=== PATIENT | female | born 1985 | race Caucasian/White ===

== ENCOUNTER 2016-08-06 20:59 | Emergency (ER) | payer MEDICAID ==
[~2016-08-06] VITALS: Ht 162.5 cm; Wt 104.3 kg
[~2016-08-06 20:59] MED LIST: ABILIFY2 MG PO; ABILIFY20 MG PO; ALBUTEROL0.09 MG/A2 IH; AMOXICILLIN500 M1 PO; AMOXICILLIN500 M2 PO; AMOXICILLIN500 MG PO; AMOXIL500 MG PO; ANAPROX DS550 MG PO; BACTRIM DS 8001 TA1 PO; BENTYL10 MG PO; BIRTH CONTROL1 EAC1 PO; BUSPAR5 MG PO; CEPHALEXIN500 M1 PO; CIPRO250 MG PO; CIPRO500 MG PO; CIPROFLOXACIN500 MG PO; CLARITIN-D 12 H1 TAB PO; CLARITIN10 MG PO; CLEOCIN150 MG PO; COLACE100 MG PO; CYMBALTA30 MG PO; DICLOFENAC POTA50 MG PO; DIFLUCAN150 MG PO; DOLOBID500 MG PO; DOXYCYCLINE MO100 MG PO; FIORICET 50-301 EACH PO; FLAGYL500 MG PO; FLINTSTONES W/I1 CTB PO; HYDROCODONE BIT1 T11 PO; IBUPROFEN1 CRY PO; IRON FERROUS S325 MG PO; KEFLEX500 MG PO; KLONOPIN0.5 MG PO; LEXAPRO; LEXAPRO10 MG PO; LEXAPRO20 MG PO; LEXAPRO5 MG PO; MACROBID100 M1 PO; MEDROL DOSEPAK4 MG PO; METFORMIN500 MG PO; MINIPRESS1 M1 PO; MOTRIN800 MG PO; Motrin,Rufen800 MG PO; NEURONTIN100 MG PO; NIFEDIPINE10 MG PO; NITROFURANTOIN100 M6 PO; NORCO 325 MG-51 TAB PO; ORTHO TRI-CYCLE1 TA1 PO; Orphenadrine C100 MG PO; PARAFON FORTE500 MG PO; PERCOCET 325 MG1 TA5 PO; PERCOCET 325 MG1 TA7 PO; PHENERGAN25 M1 PO; PREDNICOT10 MG PO; PREDNICOT20 MG PO; PREDNISONE10 MG PO; PREDNISONE20 M1 PO; PRENATAL1 TA4 PO; PRENATAL1 TA7 PO; PRILOSEC40 M1 PO; PROCARDIA10 MG PO; PROVENTIL0.09 MG/A1 INH; PYRIDIUM200 M1 PO; PYRIDIUM200 MG PO; ROBAXIN750 MG PO; ROBINUL FORTE2 MG PO; ROBITUSSIN AC 110 ML PO; ROBITUSSIN DM 105 ML PO; SEROQUEL XR50 MG PO; SEROQUEL50 MG PO; TRAMADOL HCL50 MG PO; TRIMOX500 MG PO; TYLENOL WITH CO1 TAB PO; TYLENOL325 M1 PO; ULTRAM50 MG PO; VALIUM10 MG PO; VALIUM5 MG PO; VIBRAMYCIN100 MG PO; VICODIN 5/500 505 MG PO; VICODIN 500 MG-1 TAB PO; VICODIN ES 7501 TAB PO; VISTARIL25 MG PO; VITAMIN B121000 MC2 SL; VOLTAREN50 M1 PO; VOLTAREN50 MG PO; XANAX0.5 MG PO; ZANTAC 150150 MG PO; ZITHROMAX TRI-500 MG PO; ZITHROMAX250 MG PO; ZOFRAN ODT4 MG SL; ZOFRAN4 MG PO; Zofran4 MG PO; [UNRECOGNIZED DRUG - OTHER]; [UNRECOGNIZED DRUG - OTHER]
[2016-08-06] MEDS ORDERED: ABILIFY20 MG PO (21:16)
[2016-08-06] MEDS ORDERED: LEXAPRO20 MG PO (21:16)
[2016-08-06] MEDS ORDERED: VISTARIL50 MG PO (21:17)
[2016-08-06] MEDS ORDERED: AUGMENTIN 875-875 MG PO (22:37)
== END 2016-08-06 21:56 | disposition home or self-care (01) ==
LOC: ED 20:59
DX: H66.001 Acute suppurative otitis media without spontaneous rupture of ear drum, right ear (principal); F31.9 Bipolar disorder, unspecified; F17.200 Nicotine dependence, unspecified, uncomplicated; Z88.6 Allergy status to analgesic agent; Z79.899 Other long term (current) drug therapy

== ENCOUNTER 2016-10-26 21:25 | Emergency (ER) | payer MEDICAID ==
[~2016-10-26] VITALS: Ht 162.5 cm; Wt 102.5 kg
[~2016-10-26 21:25] MED LIST changes: +AUGMENTIN 875-875 MG PO; +VISTARIL50 MG PO
[2016-10-26 21:49] VITALS: BP 121/82
[2016-10-26] MEDS ORDERED: CYCLOBENZAPRINE10 MG PO (22:24)
== END 2016-10-26 22:29 | disposition home or self-care (01) ==
LOC: ED 21:25
DX: M25.512 Pain in left shoulder (principal); F17.200 Nicotine dependence, unspecified, uncomplicated; Z88.6 Allergy status to analgesic agent; Z79.899 Other long term (current) drug therapy

== ENCOUNTER 2016-11-12 21:52 | Emergency (ER) | payer MEDICAID ==
[~2016-11-12] VITALS: Ht 162.5 cm; Wt 99.8 kg
[~2016-11-12 21:52] MED LIST changes: +CYCLOBENZAPRINE10 MG PO
[2016-11-12 22:02] VITALS: BP 121/73
[2016-11-12 22:47] LABS: BILIRUBIN 1+ (NEGATIVE); BLOOD TRACE-INTACT (NEGATIVE); CLARITY SL CLOUDY (CLEAR); COLOR YELLOW (YELLOW); GLUCOSE NEGATIVE (NEGATIVE); KETONE TRACE (NEGATIVE); LEUKO ESTERASE TRACE (NEGATIVE); NITRITE NEGATIVE (NEGATIVE); PH 6.5 (5.0-9.0); PROTEIN 1+ (NEGATIVE)
[2016-11-12] MEDS ORDERED: COLACE100 MG PO (22:59)
[2016-11-12] MEDS ORDERED: MACROBID100 M1 PO (22:59)
[2016-11-12 23:06] LABS: BACTERIA 1+; MUCOUS 2+; URINE REFLEX COMMENT YES (NO)
== END 2016-11-12 23:29 | disposition home or self-care (01) ==
LOC: ED 21:52
PROVIDERS: Family Medicine
DX: N30.01 Acute cystitis with hematuria (principal); K59.00 Constipation, unspecified; G89.29 Other chronic pain; M54.2 Cervicalgia; F17.200 Nicotine dependence, unspecified, uncomplicated; Z88.6 Allergy status to analgesic agent

== ENCOUNTER 2017-03-28 17:49 | Emergency (ER) | payer MEDICAID ==
[~2017-03-28] VITALS: Ht 162.5 cm; Wt 107.0 kg
[2017-03-28 18:00] VITALS: BP 125/74
[2017-03-28 18:24] LABS: BASO % 0.1 % (0.0-1.0); EOS # 0.2 10*3/uL (0.0-0.4); EOS % 1.5 % (1.0-4.0); HEMATOCRIT 34.9 % (37.0-47.0); HEMOGLOBIN 12.1 g/dl (12.0-16.0); LYMPH # 2.3 10*3/uL (1.3-4.4); LYMPH % 21.6 % (27.0-41.0); MEAN CELL VOLUME 95.4 fl (81.0-99.0); MEAN CORPUSCULAR HGB 33.1 pg (27.0-31.0); MEAN CORPUSCULAR HGB CONC 34.7 g/dl (33.0-37.0); MONO # 0.8 10*3/uL (0.1-1.0); MONO % 7.1 % (3.0-9.0); NEUT # 7.5 10*3/uL (2.3-7.9); NEUT % 69.4 % (47.0-73.0); PLATELET COUNT AUTOMATED 172 10*3/uL (130-400); RED BLOOD COUNT 3.66 10*6/uL (4.10-5.10); RED CELL DISTRI WIDTH 12.3 % (0-14.5); WHITE BLOOD COUNT 10.8 10*3/uL (4.8-10.8)
[2017-03-28 18:36] LABS: BUN 5 mg/dl (7-24); CHLORIDE 106 mmol/L (98-107); POTASSIUM 3.9 mmol/L (3.5-5.1); SODIUM 138 mmol/L (136-145)
[2017-03-28 19:17] LABS: BILIRUBIN NEGATIVE (NEGATIVE); BLOOD NEGATIVE (NEGATIVE); CLARITY CLEAR (CLEAR); COLOR YELLOW (YELLOW); GLUCOSE NEGATIVE (NEGATIVE); KETONE NEGATIVE (NEGATIVE); LEUKO ESTERASE NEGATIVE (NEGATIVE); NITRITE NEGATIVE (NEGATIVE); PH 6.5 (5.0-9.0); UROBILINOGEN 0.2 E.U./dl (0.2-1.0)
[2017-03-28 19:23] LABS: BACTERIA TRACE
[2017-03-28 20:21] LABS: URINE AMPHETAMINES < 1000 (1000ng/ml); URINE BARBITURATES < 200 (200ng/ml); URINE BENZODIAZEPINES < 200 (200ng/ml); URINE CANNABINOIDS (THC) < 50 (50ng/ml); URINE COCAINE < 300 (300ng/ml); URINE METHADONE < 300 (300ng/ml); URINE OPIATES < 300 (300ng/ml); URINE PHENCYCLIDINE < 25 (25ng/ml)
[2017-03-28] MEDS ORDERED: TOPCARE PAIN R325 MG PO (20:30)
== END 2017-03-28 20:35 | disposition home or self-care (01) ==
LOC: ED 17:49
PROVIDERS: Emergency Medicine; Emergency Medicine Emergency Medical Services
DX: O26.892 Other specified pregnancy related conditions, second trimester (principal); R10.2 Pelvic and perineal pain; O99.332 Smoking (tobacco) complicating pregnancy, second trimester; G89.29 Other chronic pain; Z3A.20 20 weeks gestation of pregnancy; Z88.6 Allergy status to analgesic agent

== ENCOUNTER 2017-11-07 18:53 | Emergency (ER) | payer MEDICAID ==
[~2017-11-07] VITALS: Ht 162.5 cm; Wt 107.0 kg
[~2017-11-07 18:53] MED LIST changes: +TOPCARE PAIN R325 MG PO
[2017-11-07 18:58] VITALS: BP 103/72
== END 2017-11-07 20:10 | disposition home or self-care (01) ==
LOC: ED 18:53
DX: S60.00XA Contusion of unspecified finger without damage to nail, initial encounter (principal); Z88.6 Allergy status to analgesic agent; W22.03XA Walked into furniture, initial encounter; Y93.89 Activity, other specified; Y92.89 Other specified places as the place of occurrence of the external cause; Y99.8 Other external cause status

== ENCOUNTER 2018-06-15 14:17 | Emergency (ER) | payer OTHER ==
[~2018-06-15] VITALS: Ht 162.5 cm; Wt 98.4 kg
[2018-06-15 14:17] VITALS: BP 115/66
[~2018-06-15 14:17] MED LIST changes: +PREDNISONE50 MG PO
[2018-06-15 14:37] LABS: BASO % 0.3 % (0.0-1.0); EOS # 0.1 10*3/uL (0.0-0.4); EOS % 0.7 % (1.0-4.0); HEMATOCRIT 37.9 % (37.0-47.0); HEMOGLOBIN 12.9 g/dl (12.0-16.0); LYMPH # 1.9 10*3/uL (1.3-4.4); LYMPH % 27.6 % (27.0-41.0); MEAN CELL VOLUME 94.5 fl (81.0-99.0); MEAN CORPUSCULAR HGB 32.2 pg (27.0-31.0); MEAN PLATELET VOLUME 9.7 fl (9.6-12.3); MONO # 0.9 10*3/uL (0.1-1.0); NEUT % 58.1 % (47.0-73.0); PLATELET COUNT AUTOMATED 215 10*3/uL (130-400); RED BLOOD COUNT 4.01 10*6/uL (4.10-5.10); RED CELL DISTRI WIDTH 11.9 % (0-14.5); WHITE BLOOD COUNT 6.9 10*3/uL (4.8-10.8)
[2018-06-15 14:55] LABS: ALBUMIN 2.9 gm/dl (3.1-4.5); ALKALINE PHOSPHATASE 65 U/L (45-117); BUN 10 mg/dl (7-24); CHLORIDE 107 mmol/L (98-107); CREATININE 0.85 mg/dL (0.55-1.02); POTASSIUM 4.2 mmol/L (3.5-5.1); SGOT/AST 24 IU/L (3-35); SGPT/ALT 42 U/L (12-78); SODIUM 139 mmol/L (136-145); TOTAL PROTEIN 7.1 gm/dL (6.4-8.2)
[2018-06-15 15:03] LABS: BILIRUBIN NEGATIVE (NEGATIVE); BLOOD TRACE-INTACT (NEGATIVE); CLARITY SL CLOUDY (CLEAR); COLOR YELLOW (YELLOW); GLUCOSE NEGATIVE (NEGATIVE); KETONE NEGATIVE (NEGATIVE); LEUKO ESTERASE 2+ (NEGATIVE); NITRITE NEGATIVE (NEGATIVE); SPECIFIC GRAVITY 1.015 (1.005-1.030); UROBILINOGEN 0.2 E.U./dl (0.2-1.0)
[2018-06-15 15:13] LABS: BACTERIA 2+; EPITHELIAL CELLS 25-30; RBC 0-2 rbc/hpf (0-2); WBC 31-40 wbc/hpf (0-5)
[2018-06-15 15:14] LABS: MUCOUS TRACE
[2018-06-15] MEDS ORDERED: LEVOFLOXACIN500 MG PO (16:05)
== END 2018-06-15 16:13 | disposition home or self-care (01) ==
LOC: ED 14:17
PROVIDERS: Emergency Medicine
DX: J40 Bronchitis, not specified as acute or chronic (principal); N39.0 Urinary tract infection, site not specified; K42.9 Umbilical hernia without obstruction or gangrene; G89.29 Other chronic pain; F17.200 Nicotine dependence, unspecified, uncomplicated; Z88.6 Allergy status to analgesic agent; Z79.2 Long term (current) use of antibiotics

== ENCOUNTER 2018-07-26 08:31 | Emergency (ER) | payer OTHER ==
[~2018-07-26] VITALS: Ht 162.5 cm; Wt 98.4 kg
[~2018-07-26 08:31] MED LIST changes: +LEVOFLOXACIN500 MG PO
[2018-07-26 08:35] VITALS: BP 113/74
[2018-07-26] MEDS ORDERED: AVPAK AZITHROM250 MG PO (08:56)
[2018-07-26] MEDS ORDERED: TYLENOL325 M1 PO (08:56)
[2018-08-18] MEDS ORDERED: ABILIFY20 MG PO (10:03)
[2018-08-18] MEDS ORDERED: VENTOLIN 02.5 MG/3 M INH (10:04)
[2018-08-24] MEDS ORDERED: CLINDAMYCIN150 MG PO (10:39)
[2018-08-24] MEDS ORDERED: MEDROL DOSEPAK4 MG PO (10:39)
[2018-08-24] MEDS ORDERED: NORCO 5-325 TA1 EACH PO (10:40)
[2018-11-01] MEDS ORDERED: MEDROL DOSEPAK4 MG PO (19:39)
[2018-11-01] MEDS ORDERED: ROBAXIN500 M1 PO (19:39)
[2018-11-01] MEDS ORDERED: TYLENOL325 M1 PO (19:39)
[2018-11-22] MEDS ORDERED: ZOFRAN4 MG PO (19:34)
[2018-11-22] MEDS ORDERED: MACROBID100 M1 PO (19:34)
== END 2018-07-26 09:02 | disposition home or self-care (01) ==
LOC: ED 08:31
DX: J01.10 Acute frontal sinusitis, unspecified (principal); J01.00 Acute maxillary sinusitis, unspecified; B96.89 Other specified bacterial agents as the cause of diseases classified elsewhere; G89.29 Other chronic pain; F17.210 Nicotine dependence, cigarettes, uncomplicated; Z88.6 Allergy status to analgesic agent; Z79.2 Long term (current) use of antibiotics; Z79.899 Other long term (current) drug therapy

== ENCOUNTER → 2018-08-24 | Day surgery (SDC) | payer OTHER ==
[2018-08-24] VITALS (8 sets, daily range): BP systolic 109–116; BP diastolic 51–66
[~2018-08-24] VITALS: Ht 162.5 cm; Wt 97.1 kg
[~2018-08-24] MED LIST changes: +AVPAK AZITHROM250 MG PO; +CLINDAMYCIN150 MG PO; +NORCO 5-325 TA1 EACH PO; +ONDANSETRON4 MG SL; +TESSALON PERLE100 MG PO; +VENTOLIN 02.5 MG/3 M INH
--- NOTE | ~2018-08-24 | O ---
[place], [place] OPERATIVE NOTE NAME: TED MAN UNIT #: [id number] ROOM: DOCTOR: IMTIAZ FREEMAN DMD BIRTHDATE: [birth year] DOS: PREOPERATIVE DIAGNOSES: Nonrestorable maxillary and mandibular dentition, extensive cervical caries and pain and anxiety. POSTOPERATIVE DIAGNOSES: Nonrestorable maxillary and mandibular dentition, extensive cervical caries and pain and anxiety. ANESTHESIA: General anesthesia with nasotracheal intubation. FLUIDS: Minimal. ESTIMATED BLOOD LOSS: 100 mL. COMPLICATIONS: None. CONDITION: To PACU, stable. DESCRIPTION OF PROCEDURE: The patient was brought to the OR and placed in supine position. IV and EKG lines were placed. Nasotracheal intubation, general anesthesia was administered. The patient was prepped and draped for oral procedures. Risks and benefits were explained to the patient prior to surgery. Clinical exam and x-rays taken determined nonrestorable maxillary and mandibular dentition due to extent of cervical caries. PROCEDURES PERFORMED: Complete extractions of teeth numbers 2, 3, 6, 7, 8, 9, 10, 11, 12, 14, 15, 18, 20, 21, 22, 23, 24, 25, 26, 27, 28, 29. Extensive difficulty with extractions including multiple broken teeth, extremely dense bone. Full-thickness flaps in all 4 quadrants with moderate bone removal. Sutured with 3-0 Vicryl. Lavaged x 2. Throat pack removed. The patient left the OR in good condition and went to the PACU. IMTIAZ FREEMAN DMD CM:OPRECORD:OPERATIVE NOTE [id number] IMTIAZ FREEMAN DMD 08/25/18 1151 interface
== END | disposition home or self-care (01) ==
LOC: SDC 08-18 10:15
DX: K02.9 Dental caries, unspecified (principal); F41.9 Anxiety disorder, unspecified; F32.9 Major depressive disorder, single episode, unspecified; M19.90 Unspecified osteoarthritis, unspecified site; B19.20 Unspecified viral hepatitis C without hepatic coma; Z98.51 Tubal ligation status; Z72.89 Other problems related to lifestyle; F17.210 Nicotine dependence, cigarettes, uncomplicated; J45.909 Unspecified asthma, uncomplicated; Z88.8 Allergy status to other drugs, medicaments and biological substances; Z91.018 Allergy to other foods; Z90.49 Acquired absence of other specified parts of digestive tract; Z79.899 Other long term (current) drug therapy; Z98.890 Other specified postprocedural states; Z82.5 Family history of asthma and other chronic lower respiratory diseases

== ENCOUNTER 2018-09-14 00:26 | Emergency (ER) | payer OTHER ==
[~2018-09-14] VITALS: Ht 162.5 cm; Wt 98.4 kg
[~2018-09-14 00:26] MED LIST changes: -ONDANSETRON4 MG SL; -TESSALON PERLE100 MG PO
[2018-09-14 00:28] VITALS: BP 115/64
[2018-09-14] MEDS ORDERED: TESSALON PERLE100 MG PO (00:36)
[2018-09-14] MEDS ORDERED: ONDANSETRON4 MG SL (00:36)
[2018-11-01] MEDS ORDERED: TYLENOL325 M1 PO (19:39)
[2018-11-01] MEDS ORDERED: ROBAXIN500 M1 PO (19:39)
[2018-11-01] MEDS ORDERED: MEDROL DOSEPAK4 MG PO (19:39)
[2018-11-22] MEDS ORDERED: ZOFRAN4 MG PO (19:34)
[2018-11-22] MEDS ORDERED: MACROBID100 M1 PO (19:34)
== END 2018-09-14 00:40 | disposition home or self-care (01) ==
LOC: ED 00:26
DX: R11.2 Nausea with vomiting, unspecified (principal); R09.81 Nasal congestion; R05 Cough; R07.81 Pleurodynia; G89.29 Other chronic pain; Z88.6 Allergy status to analgesic agent; Z91.048 Other nonmedicinal substance allergy status; Z79.899 Other long term (current) drug therapy

== ENCOUNTER 2018-09-28 00:02 | Emergency (ER) | payer OTHER ==
[~2018-09-28] VITALS: Ht 165.1 cm; Wt 96.6 kg
--- NOTE | ~2018-09-28 | EKG ---
[place], [place] ELECTROCARDIOGRAM REPORT NAME: TED MAN UNIT #: [id number] ROOM: DOCTOR: EPIPHIVY DRAFT REPORT BIRTHDATE: [birth year] [facility] Test Date: 2018-09-28 Test Time: 00:08:34 Pat Name: TED MAN Department: Room: Gender: F [employer]: : 1985 Requested By: ANDREW WALKER Order Number: [id number] Reading MD: Yahir Ohara MD Measurements Intervals [place] Rate: 79 P: 54 WY: 120 QRS: 64 QRSD: 95 T: 28 QT: 372 QTc: 427 Interpretive Statements Sinus rhythm Borderline T wave abnormalities Baseline wander in lead(s) II,III,aVF Electronically Signed On 10-01-2018 13:52:57 PDT by Yahir Ohara MD CM:EKGRPT:ELECTROCARDIOGRAM REPORT [id number] ANDREW WILSON DRAFT REPORT ANDREW WALKER DO
[2018-09-28 00:02] VITALS: BP 115/54
[~2018-09-28 00:02] MED LIST changes: +ONDANSETRON4 MG SL; +TESSALON PERLE100 MG PO
[2018-09-28 00:27] LABS: BASO # 0.1 10*3/uL (0.0-0.1); BASO % 0.5 % (0.0-1.0); EOS # 0.1 10*3/uL (0.0-0.4); EOS % 1.2 % (1.0-4.0); HEMATOCRIT 36.4 % (37.0-47.0); HEMOGLOBIN 12.1 g/dl (12.0-16.0); LYMPH # 3.7 10*3/uL (1.3-4.4); LYMPH % 36.5 % (27.0-41.0); MEAN CELL VOLUME 91.5 fl (81.0-99.0); MEAN CORPUSCULAR HGB 30.4 pg (27.0-31.0); MEAN CORPUSCULAR HGB CONC 33.2 g/dl (33.0-37.0); MEAN PLATELET VOLUME 9.8 fl (9.6-12.3); MONO # 0.5 10*3/uL (0.1-1.0); MONO % 5.2 % (3.0-9.0); NEUT # 5.7 10*3/uL (2.3-7.9); NEUT % 56.4 % (47.0-73.0); PLATELET COUNT AUTOMATED 231 10*3/uL (130-400); RED BLOOD COUNT 3.98 10*6/uL (4.10-5.10); RED CELL DISTRI WIDTH 13.3 % (0-14.5); WHITE BLOOD COUNT 10.1 10*3/uL (4.8-10.8)
[2018-09-28 00:37] LABS: ACT PARTIAL THROMBO TIME 24.1 SECONDS (20.8-31.5); INTERNATIONAL NORM RATIO 0.9 (2.0-3.5)
[2018-09-28 00:51] LABS: ALKALINE PHOSPHATASE 86 U/L (45-117); BUN 5 mg/dl (7-24); CHLORIDE 104 mmol/L (98-107); CREATININE 0.87 mg/dL (0.55-1.02); POTASSIUM 3.6 mmol/L (3.5-5.1); SGOT/AST 23 IU/L (3-35); SGPT/ALT 30 U/L (12-78); SODIUM 137 mmol/L (136-145); TOTAL PROTEIN 6.7 gm/dL (6.4-8.2)
[2018-09-28 00:53] LABS: TROPONIN I < 0.015 ng/ml (<0.045)
[2018-11-01] MEDS ORDERED: MEDROL DOSEPAK4 MG PO (19:39)
[2018-11-01] MEDS ORDERED: ROBAXIN500 M1 PO (19:39)
[2018-11-01] MEDS ORDERED: TYLENOL325 M1 PO (19:39)
[2018-11-22] MEDS ORDERED: ZOFRAN4 MG PO (19:34)
[2018-11-22] MEDS ORDERED: MACROBID100 M1 PO (19:34)
== END 2018-09-28 02:13 | disposition left against medical advice (07) ==
LOC: ED 00:02
PROVIDERS: Emergency Medicine
DX: R07.89 Other chest pain (principal); Z79.899 Other long term (current) drug therapy; Z88.6 Allergy status to analgesic agent; Z91.018 Allergy to other foods

== ENCOUNTER 2019-03-17 10:20 | Emergency (ER) | payer OTHER ==
[~2019-03-17] VITALS: Ht 162.5 cm; Wt 98.9 kg
[~2019-03-17 10:20] MED LIST changes: +ROBAXIN500 M1 PO
[2019-03-17 10:21] VITALS: BP 107/49
== END 2019-03-17 11:33 | disposition home or self-care (01) ==
LOC: ED 10:20
DX: M79.672 Pain in left foot (principal); E66.9 Obesity, unspecified; F17.200 Nicotine dependence, unspecified, uncomplicated; Z79.899 Other long term (current) drug therapy; Z88.6 Allergy status to analgesic agent; X58.XXXA Exposure to other specified factors, initial encounter; Y93.89 Activity, other specified; Y92.89 Other specified places as the place of occurrence of the external cause; Y99.8 Other external cause status

== ENCOUNTER 2019-08-25 09:59 | Emergency (ER) | payer MEDICAID ==
[~2019-08-25] VITALS: Ht 162.5 cm; Wt 98.9 kg
[2019-08-25 10:20] VITALS: BP 119/68
[2019-08-25] MEDS ORDERED: IBU800 MG PO (11:44)
== END 2019-08-25 12:10 | disposition home or self-care (01) ==
LOC: ED 09:59
DX: S93.402A Sprain of unspecified ligament of left ankle, initial encounter (principal); S93.602A Unspecified sprain of left foot, initial encounter; F17.200 Nicotine dependence, unspecified, uncomplicated; Z88.6 Allergy status to analgesic agent; Z91.018 Allergy to other foods; Z79.2 Long term (current) use of antibiotics; Z79.899 Other long term (current) drug therapy; X58.XXXA Exposure to other specified factors, initial encounter; Y93.89 Activity, other specified; Y92.89 Other specified places as the place of occurrence of the external cause; Y99.8 Other external cause status

== ENCOUNTER 2020-06-10 17:42 | Emergency (ER) | payer MEDICAID ==
[~2020-06-10] VITALS: Ht 162.5 cm; Wt 95.7 kg
[~2020-06-10 17:42] MED LIST changes: +IBU800 MG PO
[2020-06-10 17:43] VITALS: BP 111/70
[2020-06-10 18:36] LABS: BASO % 0.3 % (0.0-1.0); EOS # 0.1 10*3/uL (0.0-0.4); EOS % 1.1 % (1.0-4.0); HEMATOCRIT 36.2 % (37.0-47.0); LYMPH # 3.2 10*3/uL (1.3-4.4); MEAN CELL VOLUME 94.5 fl (81.0-99.0); MEAN CORPUSCULAR HGB 30.5 pg (27.0-31.0); MEAN CORPUSCULAR HGB CONC 32.3 g/dl (33.0-37.0); MEAN PLATELET VOLUME 9.8 fl (9.6-12.3); MONO # 0.6 10*3/uL (0.1-1.0); MONO % 5.9 % (3.0-9.0); NEUT # 5.4 10*3/uL (2.3-7.9); NEUT % 58.3 % (47.0-73.0); PLATELET COUNT AUTOMATED 272 10*3/uL (130-400); RED BLOOD COUNT 3.83 10*6/uL (4.10-5.10); RED CELL DISTRI WIDTH 12.6 % (0-14.5); WHITE BLOOD COUNT 9.3 10*3/uL (4.8-10.8)
[2020-06-10 18:50] LABS: ALBUMIN 3.3 gm/dl (3.1-4.5); ALKALINE PHOSPHATASE 79 U/L (45-117); BUN 7 mg/dl (7-24); CHLORIDE 107 mmol/L (98-107); CREATININE 0.95 mg/dL (0.55-1.02); POTASSIUM 3.7 mmol/L (3.5-5.1); SGOT/AST 21 IU/L (3-35); SGPT/ALT 31 U/L (12-78); SODIUM 139 mmol/L (136-145); TOTAL PROTEIN 7.1 gm/dL (6.4-8.2)
[2020-06-10 18:50] LABS: BILIRUBIN 1+ (Negative); BLOOD 3+ (Negative); CLARITY Turbid (Clear); COLOR Red (Yellow); GLUCOSE Negative (Negative); KETONE Negative (Negative); LEUKO ESTERASE 2+ (Negative); NITRITE Positive (Negative)
[2020-06-10 18:54] LABS: BETA-HCG, QUANT < 1.0 mIU/mL (1-3)
[2020-06-10 18:58] LABS: RBC TNTC rbc/hpf (0-2)
[2020-06-10] MEDS ORDERED: CEFUROXIME AXE250 MG PO (20:16)
== END 2020-06-10 20:30 | disposition home or self-care (01) ==
LOC: ED 17:42
PROVIDERS: Nurse Practitioner Family
DX: N92.0 Excessive and frequent menstruation with regular cycle (principal); N39.0 Urinary tract infection, site not specified; F17.200 Nicotine dependence, unspecified, uncomplicated; Z98.51 Tubal ligation status; Z88.6 Allergy status to analgesic agent; Z91.018 Allergy to other foods

== ENCOUNTER 2020-11-03 15:01 | Emergency (ER) | payer OTHER, MEDICAID ==
[~2020-11-03] VITALS: Wt 99.8 kg
[~2020-11-03 15:01] MED LIST changes: +CEFUROXIME AXE250 MG PO
[2020-11-03 15:02] VITALS: BP 111/62
[2020-11-03 15:43] LABS: BASO % 0.4 % (0.0-1.0); EOS # 0.1 10*3/uL (0.0-0.4); EOS % 0.9 % (1.0-4.0); HEMATOCRIT 31.5 % (37.0-47.0); LYMPH # 2.4 10*3/uL (1.3-4.4); LYMPH % 32.3 % (27.0-41.0); MEAN CELL VOLUME 77.4 fl (81.0-99.0); MEAN CORPUSCULAR HGB 22.9 pg (27.0-31.0); MEAN CORPUSCULAR HGB CONC 29.5 g/dl (33.0-37.0); MEAN PLATELET VOLUME 8.8 fl (9.6-12.3); MONO # 0.6 10*3/uL (0.1-1.0); MONO % 7.9 % (3.0-9.0); NEUT # 4.4 10*3/uL (2.3-7.9); PLATELET COUNT AUTOMATED 347 10*3/uL (130-400); RED BLOOD COUNT 4.07 10*6/uL (4.10-5.10); RED CELL DISTRI WIDTH 21.2 % (0-14.5); WHITE BLOOD COUNT 7.5 10*3/uL (4.8-10.8)
[2020-11-03 15:54] LABS: ACT PARTIAL THROMBO TIME 26.2 SECONDS (20.0-32.1)
[2020-11-03 15:59] LABS: ALBUMIN 2.7 gm/dl (3.1-4.5); ALKALINE PHOSPHATASE 83 U/L (45-117); BUN 10 mg/dl (7-24); CHLORIDE 110 mmol/L (98-107); CREATININE 0.77 mg/dL (0.55-1.02); POTASSIUM 4.1 mmol/L (3.5-5.1); SGOT/AST 19 IU/L (3-35); SGPT/ALT 25 U/L (12-78); SODIUM 139 mmol/L (136-145); TOTAL PROTEIN 6.6 gm/dL (6.4-8.2)
[2020-11-03 16:00] LABS: B-hCG (QUALITATIVE) NEGATIVE (NEGATIVE)
[2020-11-03 16:01] LABS: ETHYL ALCOHOL < 3.0 mg/dl (<3); TROPONIN I < 0.015 ng/ml (<0.045)
[2020-11-03 16:43] LABS: BILIRUBIN Negative (Negative); BLOOD 1+ (Negative); CLARITY Cloudy (Clear); COLOR Yellow (Yellow); GLUCOSE Negative (Negative); KETONE Negative (Negative); LEUKO ESTERASE 3+ (Negative); NITRITE Positive (Negative); UROBILINOGEN 0.2 E.U./dl (0.0-1.0)
[2020-11-03 16:46] LABS: RETICULOCYTE % 1.42 % (0.50-2.50)
[2020-11-03 16:51] LABS: PH 8.5 (4.5-8.0)
[2020-11-03 16:52] LABS: EPITHELIAL CELLS 16-20; WBC 31-40 wbc/hpf (0-5)
[2020-11-03 16:53] LABS: BACTERIA 3+
[2020-11-03 16:55] LABS: IRON 11 ug/dL (50-170); TOTAL IRON BINDING CAPACITY 393 ug/dl (250-450)
[2020-11-03] MEDS ORDERED: TYLENOL325 M1 PO (17:55)
[2020-11-03] MEDS ORDERED: CYCLOBENZAPRINE10 MG PO (17:55)
== END 2020-11-03 18:05 | disposition home or self-care (01) ==
LOC: ED 15:01
PROVIDERS: Emergency Medicine
DX: D50.0 Iron deficiency anemia secondary to blood loss (chronic) (principal); F31.9 Bipolar disorder, unspecified; F17.200 Nicotine dependence, unspecified, uncomplicated; Z88.8 Allergy status to other drugs, medicaments and biological substances; Z79.899 Other long term (current) drug therapy; V89.2XXA Person injured in unspecified motor-vehicle accident, traffic, initial encounter; Y93.89 Activity, other specified; Y92.89 Other specified places as the place of occurrence of the external cause; Y99.8 Other external cause status

== ENCOUNTER 2021-01-02 12:19 | Emergency (ER) | payer OTHER ==
[~2021-01-02] VITALS: Wt 90.7 kg
[2021-01-02 12:27] VITALS: BP 114/76
[2021-01-02 12:49] LABS: BILIRUBIN Negative (Negative); BLOOD Negative (Negative); CLARITY Clear (Clear); COLOR Yellow (Yellow); GLUCOSE Negative (Negative); KETONE Negative (Negative); LEUKO ESTERASE 3+ (Negative); NITRITE Positive (Negative); PH 7.5 (4.5-8.0); SPECIFIC GRAVITY <= 1.005 (1.001-1.030); UROBILINOGEN 0.2 E.U./dl (0.0-1.0)
[2021-01-02 13:11] LABS: BACTERIA 4+; WBC 21-30 wbc/hpf (0-5)
[2021-01-02] MEDS ORDERED: VALTREX1000 MG PO (13:22)
[2021-01-02] MEDS ORDERED: CEFUROXIME AXE500 MG PO (13:22)
== END 2021-01-02 14:11 | disposition home or self-care (01) ==
LOC: ED 12:19
PROVIDERS: Physician Assistant
DX: B02.9 Zoster without complications (principal); N39.0 Urinary tract infection, site not specified

== ENCOUNTER → 2021-04-24 | Outpatient (CLI) | payer OTHER ==
[~2021-04-24] MED LIST changes: +BUSPIRONE HCL10 MG PO; +CEFUROXIME AXE500 MG PO; +MINIPRESS1 MG PO; +VALTREX1000 MG PO; +ZYRTEC10 M2 PO
[2021-05-01 08:37] VITALS: BP 130/73
[2021-05-07 08:11] VITALS: BP 106/67
== END | disposition home or self-care (01) ==
LOC: INJECTION 08:10
PROVIDERS: ATTEND Nurse Practitioner Women's Health
DX: A53.9 Syphilis, unspecified (principal)

== ENCOUNTER → 2022-10-23 | Outpatient (CLI) | payer OTHER | END | disposition home or self-care (01) | LOC: RAD 15:49 | PROVIDERS: ATTEND Family Medicine | DX: M19.011 Primary osteoarthritis, right shoulder (principal); M25.511 Pain in right shoulder ==

== ENCOUNTER → 2023-11-18 | Outpatient (CLI) | payer OTHER | END | disposition home or self-care (01) | LOC: RAD 13:32 | PROVIDERS: ATTEND Family Medicine | DX: M17.12 Unilateral primary osteoarthritis, left knee (principal) ==

== ENCOUNTER → 2024-04-11 | Outpatient (CLI) | payer OTHER | END | disposition home or self-care (01) | LOC: RAD 12:45 | PROVIDERS: ATTEND Family Medicine | DX: R06.02 Shortness of breath (principal) ==

== ENCOUNTER → 2024-12-05 | Outpatient (CLI) | payer OTHER | END | disposition home or self-care (01) | LOC: RAD 11:37 | PROVIDERS: ATTEND Family Medicine | DX: M25.572 Pain in left ankle and joints of left foot (principal) ==

== ENCOUNTER → 2025-03-08 | Outpatient (CLI) | payer OTHER | END | disposition home or self-care (01) | LOC: MAMMO 10:07 | PROVIDERS: ATTEND Family Medicine | DX: Z12.31 Encounter for screening mammogram for malignant neoplasm of breast (principal); R92.323 Mammographic fibroglandular density, bilateral breasts ==

== ENCOUNTER → 2025-04-24 | Outpatient (CLI) | payer OTHER | END | disposition home or self-care (01) | LOC: RAD 14:57 | PROVIDERS: ATTEND Family Medicine | DX: S03.9XXA Sprain of joints and ligaments of unspecified parts of head, initial encounter (principal); M19.90 Unspecified osteoarthritis, unspecified site; X58.XXXA Exposure to other specified factors, initial encounter; Y93.89 Activity, other specified; Y92.89 Other specified places as the place of occurrence of the external cause; Y99.8 Other external cause status ==

== ENCOUNTER → 2025-05-08 | Outpatient (CLI) | payer OTHER | END | disposition home or self-care (01) | LOC: RAD 14:20 | PROVIDERS: ATTEND Family Medicine | DX: M25.511 Pain in right shoulder (principal) ==

== ENCOUNTER 2025-06-10 12:21 | Emergency (ER) | payer OTHER ==
[~2025-06-10] VITALS: Ht 162.5 cm; Wt 110.7 kg
[2025-06-10 12:32] VITALS: BP 127/91
[2025-06-10] MEDS ORDERED: Dicyclomine Hydrochloride 20 MG/10 ML OSYR PO STA (13:02)
[2025-06-10] MEDS ORDERED: MG-AL HYDROXIDE/SIMETICONE 30 ML UDC PO STA (13:02)
[2025-06-10 13:19] LABS: BASO # 0.0 10*3/uL (0.0-0.1); BASO % 0.3 % (0.0-1.0); EOS # 0.2 10*3/uL (0.0-0.4); EOS % 2.6 % (1.0-4.0); MEAN CELL VOLUME 91.1 fl (81.0-99.0); MEAN CORPUSCULAR HGB 29.6 pg (27.0-31.0); MEAN PLATELET VOLUME 9.5 fl (9.6-12.3); MONO # 0.7 10*3/uL (0.1-1.0); MONO % 7.4 % (3.0-9.0); NEUT # 5.7 10*3/uL (2.3-7.9); NEUT % 61.3 % (47.0-73.0); NUCLEATED RED BLOOD CELL 0.0 % (0.0-0.0); NUCLEATED RED BLOOD CELL 0.0 10*3/uL (0.0-0.0); PLATELET COUNT AUTOMATED 234 10*3/uL (130-400); RED CELL DISTRI WIDTH 14.3 % (0-14.5)
[2025-06-10 13:42] LABS: BUN 9 mg/dl (9-23); SGPT/ALT 12 U/L (5-49)
[2025-06-10] MEDS ORDERED: diphenhydrAMINE hydrochloride 25 MG CAP PO ONE (14:10)
[2025-06-10] MEDS ORDERED: REGLAN10 M1 PO (15:04)
== END 2025-06-10 15:06 | disposition home or self-care (01) ==
LOC: ED 12:21
PROVIDERS: Nurse Practitioner
DX: K59.00 Constipation, unspecified (principal); K21.9 Gastro-esophageal reflux disease without esophagitis; F32.A Depression, unspecified; F41.9 Anxiety disorder, unspecified; M19.90 Unspecified osteoarthritis, unspecified site; F17.290 Nicotine dependence, other tobacco product, uncomplicated; Z88.1 Allergy status to other antibiotic agents; Z91.018 Allergy to other foods

== ENCOUNTER → 2025-07-04 | Outpatient (CLI) | payer OTHER ==
[~2025-07-04] MED LIST changes: +REGLAN10 M1 PO
[2025-07-04 11:19] LABS: BASO # 0.0 10*3/uL (0.0-0.1); BASO % 0.5 % (0.0-1.0); EOS # 0.3 10*3/uL (0.0-0.4); EOS % 2.8 % (1.0-4.0); MEAN CELL VOLUME 91.0 fl (81.0-99.0); MEAN CORPUSCULAR HGB 29.8 pg (27.0-31.0); MEAN PLATELET VOLUME 10.0 fl (9.6-12.3); MONO # 0.8 10*3/uL (0.1-1.0); MONO % 8.9 % (3.0-9.0); NEUT # 5.3 10*3/uL (2.3-7.9); NEUT % 60.1 % (47.0-73.0); NUCLEATED RED BLOOD CELL 0.0 % (0.0-0.0); NUCLEATED RED BLOOD CELL 0.0 10*3/uL (0.0-0.0); PLATELET COUNT AUTOMATED 229 10*3/uL (130-400); RED CELL DISTRI WIDTH 13.9 % (0-14.5)
[2025-07-04 11:54] LABS: BUN 10 mg/dl (9-23); SGPT/ALT 9 U/L (5-49)
[2025-07-06 14:07] LABS: TB1 Ag VALUE 0.24 IU/mL (.)
== END | disposition home or self-care (01) ==
LOC: LAB 10:41
PROVIDERS: ATTEND Emergency Medicine
DX: F31.9 Bipolar disorder, unspecified (principal)